=== PATIENT | female | born 1930 | race Hispanic/Latino ===

== ENCOUNTER 2018-09-05 14:00 | Outpatient (RCR) | payer MEDICARE | END 2018-09-06 | LOC: OT 14:00 | PROVIDERS: ATTEND Specialist | DX: S46.001A Unspecified injury of muscle(s) and tendon(s) of the rotator cuff of right shoulder, initial encounter (principal); M25.511 Pain in right shoulder; M25.611 Stiffness of right shoulder, not elsewhere classified; R53.1 Weakness ==

== ENCOUNTER 2018-09-26 08:30 | Outpatient (RCR) | payer MEDICARE | END 2018-10-07 | LOC: OT 08:30 | PROVIDERS: ATTEND Specialist | DX: M75.101 Unspecified rotator cuff tear or rupture of right shoulder, not specified as traumatic (principal); S46.001D Unspecified injury of muscle(s) and tendon(s) of the rotator cuff of right shoulder, subsequent encounter; M25.511 Pain in right shoulder; M25.611 Stiffness of right shoulder, not elsewhere classified; R53.1 Weakness | CPT/HCPCS: 97139 ==